=== PATIENT | male | born 1945 | race Caucasian/White ===

== ENCOUNTER 2019-06-07 19:54 | Emergency (ER) | payer OTHER ==
[~2019-06-07] VITALS: Ht 170.2 cm; Wt 77.6 kg
[2019-06-07] MEDS ORDERED: [UNRECOGNIZED DRUG - OTHER] (20:32)
== END 2019-06-08 14:44 | disposition designated cancer center or children's hospital (05) ==
LOC: ER 19:54
DX: M51.36 Other intervertebral disc degeneration, lumbar region (principal); M51.26 Other intervertebral disc displacement, lumbar region; R53.1 Weakness